=== PATIENT | male | born 1970 | race Two or more races ===

== ENCOUNTER 2020-02-27 02:48 | Emergency (ER) | payer OTHER ==
[~2020-02-27] VITALS: Ht 170.2 cm; Wt 113.4 kg
[2020-02-27] MEDS ORDERED: ZESTRIL10 M1 (03:05)
[2020-02-27] MEDS ORDERED: ONDANSETRON ODT4 MG SL (06:49)
[2020-02-27] MEDS ORDERED: URIN D.S. TABL1 EACH PO (06:49)
[2020-02-27] MEDS ORDERED: TAMS0.4C PO (06:49)
[2020-02-27] MEDS ORDERED: ULTRAM50 MG PO (06:49)
== END 2020-02-27 08:00 | disposition home or self-care (01) ==
LOC: ER 02:48
DX: N20.0 Calculus of kidney (principal)